=== PATIENT | female | born 2000 | race Caucasian/White ===

== ENCOUNTER 2025-03-01 11:23 | Outpatient (CLI) | payer OTHER, SELFPAY | END 2025-03-01 11:24 | disposition home or self-care (01) | LOC: NFLDREF 03-07 11:50 | DX: B37.31 Acute candidiasis of vulva and vagina (principal); N39.0 Urinary tract infection, site not specified; B95.1 Streptococcus, group B, as the cause of diseases classified elsewhere | CPT/HCPCS: 87086; 87186 ==